=== PATIENT | female | born 1950 | race African-American/Black ===

== ENCOUNTER 2017-06-29 19:23 | Emergency (ER) | payer BC ==
[2017-06-29 19:30] VITALS: BP 137/85; PULSE 80; TEMP 97.7; BMI 25.8
--- NOTE | 2017-06-29 20:20 | PDOC ---
History of Present Illness - General History Source: Patient Exam Limitations: No Limitations - History of Present Illness Initial Comments: 06/29/17 21:44 The patient is a 66 year old female with no significant past medical history who presents to the ED complaining of right shoulder pain that began last night. Patient states she was lifting weights in an exercise class when her pain began. She completed the class. Today she noted a prominence of her right shoulder with significant pain. She also reports associated limited ROM in her right shoulder. No numbness or tingling. No clicking, locking, or catching. <Tiffanie Grissom - Last Filed: 06/29/17 21:44> <Brandee Rodriguez - Last Filed: 06/30/17 05:48> - General Chief Complaint: Injury Stated Complaint: RT SHOULDER PAIN Past History <Tiffanie Grissom - Last Filed: 06/29/17 21:44> - Past Medical History Other medical history: DENIES - Suicide/Smoking/Psychosocial Hx Smoking History: Never smoked <Brandee Rodriguez - Last Filed: 06/30/17 05:48> - Past Medical History Allergies/Adverse Reactions: Allergies Allergy/AdvReac Type Severity Reaction Status Date / Time No Known Allergies Allergy Unverified 06/29/17 19:27 Home Medications: Ambulatory Orders NK [No Known Home Medication] 06/29/17 Review of Systems - Review of Systems Able to Perform ROS?: Yes Comments:: 06/29/17 21:46 GENERAL/CONSTITUTIONAL: No fever or chills. No weakness. HEAD, EYES, EARS, NOSE AND THROAT: No change in vision. No ear pain or discharge. No sore throat. CARDIOVASCULAR: No chest pain or shortness of breath. RESPIRATORY: No cough, wheezing, or hemoptysis. GASTROINTESTINAL: No nausea, vomiting, diarrhea or constipation. GENITOURINARY: No dysuria, frequency, or change in urination. MUSCULOSKELETAL: +R shoulder pain. No other joint or muscle swelling or pain. No neck or back pain. SKIN: No rash NEUROLOGIC: No headache, vertigo, loss of consciousness, or change in strength/ sensation. ENDOCRINE: No increased thirst. No abnormal weight change. HEMATOLOGIC/LYMPHATIC: No anemia, easy bleeding, or history of blood clots. ALLERGIC/IMMUNOLOGIC: No hives or skin allergy. <Tiffanie Grissom - Last Filed: 06/29/17 21:44> *Physical Exam - Vital Signs Last Vital Signs Temp Pulse Resp BP Pulse Ox 97.7 F 80 18 137/85 100 06/29/17 19:28 06/29/17 19:28 06/29/17 19:28 06/29/17 19:28 06/29/17 19:28 - Physical Exam Comments: 06/29/17 21:46 GENERAL: Awake, alert, and fully oriented, in no acute distress HEAD: No signs of trauma EYES: PERRLA, EOMI, sclera anicteric, conjunctiva clear NECK: Normal ROM, supple, no lymphadenopathy, JVD, or masses EXTREMITIES: RUE: +Prominence at the lateral clavicle. Able to cross shoulder with full ROM. No tenderness to palpation. All other extremities: Normal range of motion, no edema. No clubbing or cyanosis. No cords, erythema, or tenderness NEUROLOGICAL: Cranial nerves II through XII grossly intact. Normal speech, normal gait SKIN: Warm, Dry, normal turgor, no rashes or lesions noted. <Tiffanie Grissom - Last Filed: 06/29/17 21:44> - Vital Signs Last Vital Signs Temp Pulse Resp BP Pulse Ox 97.7 F 80 18 137/85 100 06/29/17 19:28 06/29/17 19:28 06/29/17 19:28 06/29/17 19:28 06/29/17 19:28 <Brandee Rodriguez - Last Filed: 06/30/17 05:48> ED Treatment Course - Medications Given in the ED: ED Medications Discontinued Medications Generic Name Dose Route Start Last Admin Trade Name Freq PRN Reason Stop Dose Admin Ibuprofen 800 mg 06/29/17 21:09 06/29/17 21:22 Motrin - PO 06/29/17 21:10 800 mg ONCE ONE Administration <Tiffanie Grissom - Last Filed: 06/29/17 21:44> Medical Decision Making - Medical Decision Making 06/30/17 05:46 Pt has a prominent right lateral aspect of her clavicle. Likely minor AC joint subluxation. Pt has been involved in intense workouts, in particular a long aerobics class involving weights and her upper extremities. Pt has musculoskeletal sprain and strain. She will be teated with NSAIDs and muscle relaxants and referred back to her PMD for followup as needed. I suggested rest of the right shoulder. No upper body weight exercises until her condition has improved. <Brandee Rodriguez - Last Filed: 06/30/17 05:48> *DC/Admit/Observation/Transfer - Attestations Scribe Attestion: 06/29/17 21:48 Documentation prepared by Tiffanie Grissom, acting as medical office secretary for Brandee Rodriguez MD. <Tiffanie Grissom - Last Filed: 06/29/17 21:44> - Discharge Dispostion Admit: No <Brandee Rodriguez - Last Filed: 06/30/17 05:48> Diagnosis at time of Disposition: Acromioclavicular (joint) (ligament) sprain - Discharge Dispostion Disposition: HOME Condition at time of disposition: Stable - Patient Instructions Printed Discharge Instructions: Shoulder Sprain, AC Joint Separation - Post Discharge Activity Forms/Work/School Notes: Back to Work
[2017-06-29] MEDS ORDERED: IBUPROFEN 400 MG TABLET (FP) PO ONE ×2 (21:09→21:22)
== END 2017-06-29 21:49 | disposition home or self-care (01) ==
LOC: FER 19:23
DX: S43.51XA Sprain of right acromioclavicular joint, initial encounter (principal); X58.XXXA Exposure to other specified factors, initial encounter; Y93.89 Activity, other specified; Y92.9 Unspecified place or not applicable
CPT/HCPCS: 73030-TC-RT; 99281-25

== ENCOUNTER 2019-07-14 19:42 | Emergency (ER) | payer BC ==
--- NOTE | 2019-07-14 19:44 | PDOC ---
History of Present Illness - General Chief Complaint: Pain, Acute Stated Complaint: LEFT FLANK PAIN History Source: Patient - History of Present Illness Initial Comments: 07/15/19 06:56 l flank pain Timing/Duration: reports: intermittent Quality: reports: moderate Abdominal Pain Onset Location: reports: flank Pain Radiation: reports: no radiation Activities at Onset: reports: exertion Aggravating Factors: improves with: Movement Alleviating Factors: improves with: Rest Past History - Past Medical History Allergies/Adverse Reactions: Allergies Allergy/AdvReac Type Severity Reaction Status Date / Time No Known Allergies Allergy Verified 07/14/19 19:43 Home Medications: Ambulatory Orders Ibuprofen [Motrin -] 400 mg PO QID PRN #12 tablet 07/14/19 Other medical history: denies - Psycho Social/Smoking Cessation Hx Smoking History: Never smoked Review of Systems - Review of Systems All Other Systems: Reviewed and Negative *Physical Exam - Physical Exam General Appearance: Yes: Nourished, Appropriately Dressed HEENT: negative: Scleral Icterus (R), Scleral Icterus (L) Neck: negative: Tender midline Respiratory/Chest: positive: Lungs Clear Cardiovascular: positive: Regular Rhythm Gastrointestinal/Abdominal: negative: Tender, Distended Lymphatic: negative: Adenopathy Musculoskeletal: positive: Normal Inspection, Other (+ paraspinal muscular tenderness on L). negative: Decreased Range of Motion Extremity: positive: Normal Capillary Refill Integumentary: positive: Normal Color Medical Decision Making - Medical Decision Making 07/15/19 06:57 msk pain nsaids Ua reviewed Discharge - Discharge Information Problems reviewed: Yes Clinical Impression/Diagnosis: Muscle injury Condition: Stable Disposition: HOME - Additional Discharge Information Prescriptions: Ibuprofen [Motrin -] 400 mg PO QID PRN #12 tablet PRN Reason: Pain - Follow up/Referral - Patient Discharge Instructions Patient Printed Discharge Instructions: Muscle Strain - Post Discharge Activity
[2019-07-14 19:48] VITALS: BP 150/88; PULSE 78; TEMP 97.6; BMI 25.5
[2019-07-14] MEDS ORDERED: IBUPROFEN 400 MG TABLET (FP) PO ONE ×2 (20:52→20:53)
== END 2019-07-14 20:55 | disposition home or self-care (01) ==
LOC: FER 19:42
DX: M79.10 Myalgia, unspecified site (principal)
CPT/HCPCS: 81003; 99281-25

== ENCOUNTER 2019-07-31 17:53 | Emergency (ER) | payer BC ==
--- NOTE | 2019-07-31 18:17 | PDOC ---
History of Present Illness - General Chief Complaint: Pain Stated Complaint: FLANK PAIN & REFLUX Time Seen by Provider: 07/31/19 17:57 History Source: Patient Exam Limitations: No Limitations - History of Present Illness Initial Comments: 07/31/19 18:14 HPI 68-year-old female with no significant medical or surgical history presenting with left lower quadrant pain intermittently x1 month. Denies any exacerbating or alleviating factors. Left lower quadrant abdominal pain described as achy, intermittent, can occur at random times of the day. She also endorses occasional symptoms of "reflux" from her abdomen into her chest, took Milk of Magnesia and oral antacids last night with some relief. Patient was seen approximately 2 weeks ago here in the emergency department for similar symptoms though at that time more severe clinical symptoms, work-up was unremarkable, no imaging was performed at that time, she was instructed to take NSAID with minimal relief thus far. at that time told she was likely having musculoskeletal strain. Denies fever, chills, chest pain, SOB, palpitation, dizziness, weakness, N, V, D , bladder and bowel problems, focal weakness/paresthesias, leg swelling/pain, rash. No sick contacts or travel. No new changes in medications. No suspicious food intake Allergies: None Past Medical History/PSH: as above Social history: Lives with family. No tobacco, ETOH or drug use. Meds: as documented in EMR PMD: [facility] Review of systems Constitutional: no fevers or chills. No weakness HEENT: no headache or dizziness. No congestion. No visual/hearing disturbances. CVS: no cp or syncope. no heartburn Resp: no sob. No cough. Gastrointestinal: +abdominal pain, +reflux, +nausea, No vomiting, diarrhea. no constipation. Genitourinary: no urinary sx, hematuria. No urgency or frequency. No vaginal discharge or vaginal bleeding MUSCULOSKELETAL: No joint pain and swelling. No neck or back pain. SKIN: no redness or skin changes, no discharge, no rash. No wounds. Hematologic: no easy bruising/bleeding. NEUROLOGIC: No headache, dizziness, LOC or altered mental status. No weakness, numbness or tingling. Psych: no anxiety or depression Allergic/Immunologic: no allergies All other systems reviewed and negative, or as documented in HPI. Physical exam General: Well appearing, awake and alert, NAD. HEENT: NCAT, PERRL, EOMI, clear conjunctiva, anicteric, moist mucus membranes, clear oropharynx, no oral lesions.. Neck: neck supple, FROM Resp: CTAB, normal and even respirations, no respiratory distress CVS: RRR, no murmurs, 2+ peripheral pulses throughout, no peripheral edema Abdomen: soft, nondistended, left lower quadrant tenderness to palpation no rebound or guarding. No CVA tenderness Back: nontender, normal inspection and ROM MSK: no edema, OAKES x4, ROM intact. No clubbing or cyanosis. normal bulk and tone. Extremities: no calf tenderness Neuro: alert, oriented appropriately; no focal neurologic deficits Psych: Calm and cooperative Skin: warm and well perfused, cap refill <2 sec, normal color, no rash or skin discoloration. 07/31/19 18:46 07/31/19 18:50 Past History - Past Medical History Allergies/Adverse Reactions: Allergies Allergy/AdvReac Type Severity Reaction Status Date / Time No Known Allergies Allergy Verified 07/31/19 17:57 Home Medications: Ambulatory Orders Magnesium Hydrox 2400MG/30Ml [Milk of Magnesia -] 30 ml PO ONCE 07/31/19 COPD: No - Psycho Social/Smoking Cessation Hx Smoking History: Never smoked Have you smoked in the past 12 months: No Hx Alcohol Use: No Drug/Substance Use Hx: No ED Treatment Course - LABORATORY CBC & Chemistry Diagram: 07/31/19 18:53 07/31/19 18:53 Medical Decision Making - Medical Decision Making 07/31/19 18:47 Vital Signs Temp Pulse Resp BP Pulse Ox 97.6 F 66 19 137/76 99 07/31/19 17:56 07/31/19 17:56 07/31/19 17:56 07/31/19 17:56 07/31/19 17:56 DDx abdominal pain: Renal colic, biliary colic, metabolic/electrolyte derangements. GERD, PUD, esophageal spasm, pancreatitis, hepatitis, constipation , colitis, gastroenteritis, cholecystitis, UTI, pyelonephritis, ileus, SBO, medication side effect, hernia, appendicitis, diverticulitis, mesenteric ischemia. msk strain, mesenteric adenitis, psoas abscess. abdominal mass. Patient has had intermittent symptoms of left lower quadrant abdominal pain x1 month. Declines any analgesia at this time, current pain is rated at 6/10. Unlikely pelvic pathology or ovarian cyst/torsion as there is no lower pelvic symptoms. Symptoms are most isolated in the abdominal region, no obstructive findings. No evidence of peritonitis. No systemic findings, otherwise well- appearing. Will give IV fluids, Maalox and Pepcid and reassess. We will also obtain CT abdomen pelvis to evaluate for diverticular disease versus diverticulitis versus intra-abdominal inflammation/infection as etiology of her symptoms given this is her second visit and symptoms are unremitting. vs mass s/o overnight attg Dr Carcamo pending imaging and ultimate dispo Discharge - Discharge Information Problems reviewed: Yes Clinical Impression/Diagnosis: Abdominal pain, left lower quadrant Condition: Good Disposition: HOME - Follow up/Referral Referrals: Carlos Garay [Primary Care Provider] - - Patient Discharge Instructions Additional Instructions: Your work-up was negative for any acute processes that could be causing her symptoms. It is important that you follow-up with your primary care doctor early next week if you still have any complaints or symptoms Return to the emergency department immediately with ANY new, persistent or worsening symptoms. Continue any medications as previously prescribed by your physician. You should follow up with your primary doctor as soon as possible regarding today's emergency department visit. . Please make sure your doctor reviews the results of your emergency evaluation. Thank you for coming to the Emergency Department today for your care. It was a pleasure to see you today. Please note that your evaluation is INCOMPLETE until you follow-up with your doctor. - Post Discharge Activity
[2019-07-31 18:22] VITALS: BP 137/76; PULSE 66; TEMP 97.6; BMI 25.5
[2019-07-31] MEDS ORDERED: MAG HYDROX/AL HYDROX/SIMETH 30 ML UNIT-DOSE CUP PO ONE (18:25)
[2019-07-31] MEDS ORDERED: FAMOTIDINE 20 MG/50 ML IVPB 20 MG/50 ML MG IVPB ONE ×2 (18:25→19:01)
[2019-07-31] MEDS ORDERED: SODIUM CHLORIDE 1,000 ML IV STA (18:25)
[2019-07-31] MEDS ORDERED: MAG HYDROX/AL HYDROX/SIMETH 30 ML UNIT-DOSE CUP ONE (19:01)
[2019-07-31 19:08] LABS: BASO % 0.7 % (0-2.0); HEMOGLOBIN 12.7 GM/dl (10.7-15.3); LYMPH % 38.7 % (8-40); MCH 31.1 pg (25.7-33.7); MCHC 32.6 g/dl (32.0-36.0); MEAN CELL VOLUME 95.5 fl (80-96); MEAN PLT VOLUME 7.9 fl (7.5-11.1); MONO % 10.6 % (3.8-10.2); PLATELET COUNT 219 K/MM3 (134-434); RBC 4.09 M/mm3 (3.60-5.2); RDW 13.2 % (11.6-15.6); WHITE BLOOD COUNT 4.7 K/mm3 (4.0-10.8)
[2019-07-31 20:21] LABS: ALBUMIN 3.7 g/dl (3.4-5.0); BILIRUBIN,TOTAL 0.4 mg/dl (0.2-1); CALCIUM 9.3 mg/dl (8.5-10); CREATININE 0.6 mg/dl (0.55-1.3); POTASSIUM 4.9 mmol/L (3.5-5.1); TOT PROT 6.8 g/dl (6.4-8.2)
[2019-07-31 21:01] LABS: EPITHELIAL CELLS FEW /hpf
--- NOTE | 2019-07-31 22:14 | PDOC ---
*Physical Exam - Vital Signs Last Vital Signs Temp Pulse Resp BP Pulse Ox 97.6 F 66 19 137/76 99 07/31/19 17:56 07/31/19 17:56 07/31/19 17:56 07/31/19 17:56 07/31/19 17:56 ED Treatment Course - LABORATORY CBC & Chemistry Diagram: 07/31/19 18:53 07/31/19 18:53 - ADDITIONAL ORDERS Additional order review: Laboratory Results 07/31/19 07/31/19 07/31/19 19:35 18:53 18:12 Sodium 140 Potassium 4.9 Chloride 104 Carbon Dioxide 28 Anion Gap 8 BUN 14.0 Creatinine 0.6 Est GFR (CKD-EPI)AfAm 107.79 Est GFR (CKD-EPI)NonAf 93.00 Random Glucose 77 Calcium 9.3 Total Bilirubin 0.4 AST 20 ALT 18 Alkaline Phosphatase 46 Total Protein 6.8 Albumin 3.7 Lipase 66 L Urine Color Yellow Urine Appearance Clear Urine pH 7.5 Urine Protein Negative Urine Glucose (UA) Negative Urine Ketones Negative Urine Blood Negative Urine Nitrite Negative Urine Bilirubin Negative Urine Urobilinogen 0.2 Ur Leukocyte Esterase Trace H Urine RBC 0-2 Urine WBC 2-5 Ur Transition Epith Cell Few Urine Bacteria Moderate 07/31/19 18:53 RBC 4.09 MCV 95.5 MCHC 32.6 RDW 13.2 MPV 7.9 Neutrophils % 48.0 Lymphocytes % 38.7 Monocytes % 10.6 H Eosinophils % 2.0 Basophils % 0.7 - Medications Given in the ED: ED Medications Discontinued Medications Generic Name Dose Route Start Last Admin Trade Name Freq PRN Reason Stop Dose Admin Al Hydroxide/Mg Hydroxide 30 ml 07/31/19 18:25 07/31/19 19:06 Mylanta Oral Suspension - PO 07/31/19 18:26 30 ml ONCE ONE Administration Famotidine/Sodium Chloride 20 mg in 50 mls @ 100 mls/hr 07/31/19 18:25 19:06 Pepcid 20 Mg Premixed Ivpb - IVPB 07/31/19 18:54 100 mls/hr ONCE ONE Administration Sodium Chloride 1,000 mls @ 1,000 mls/hr 07/31/19 18:25 07/31/19 19:06 Normal Saline - IV 07/31/19 19:24 1,000 mls/hr ASDIR STA Administration ED Progress Note - Progress Note Progress Note: 07/31/19 22:13 Care of this patient was transferred to me from Dr. Hernandez at 1900 hrs. Patient is a 68-year-old female who comes in complaining of left-sided abdominal pain. Patient has a work-up in progress including a CAT scan of her abdomen. Patient' s blood work is normal however CAT scan is still pending. Patient's CAT scan was negative for any acute pathology specifically no diverticulitis Patient has been sleeping comfortably Patient discharged we will follow-up with her primary care doctor Discharge - Discharge Information Problems reviewed: Yes Clinical Impression/Diagnosis: Abdominal pain, left lower quadrant Condition: Good - Follow up/Referral Referrals: Carlos Garay [Primary Care Provider] - - Patient Discharge Instructions Additional Instructions: Your work-up was negative for any acute processes that could be causing her symptoms. It is important that you follow-up with your primary care doctor early next week if you still have any complaints or symptoms Return to the emergency department immediately with ANY new, persistent or worsening symptoms. Continue any medications as previously prescribed by your physician. You should follow up with your primary doctor as soon as possible regarding today's emergency department visit. . Please make sure your doctor reviews the results of your emergency evaluation. Thank you for coming to the Emergency Department today for your care. It was a pleasure to see you today. Please note that your evaluation is INCOMPLETE until you follow-up with your doctor. - Post Discharge Activity
[2019-07-31] MEDS ORDERED: KETOROLAC TROMETHAMINE 30 MG/1 ML VIAL ONE (22:18)
[2019-07-31] MEDS ORDERED: KETOROLAC TROMETHAMINE 30 MG/1 ML VIAL IVPUSH ONE (22:18)
--- NOTE | 2019-08-01 14:12 | EKG ---
Test Reason : Blood Pressure : / mmHG Vent. Rate : 061 BPM Atrial Rate : 061 BPM P-R Int : 206 ms QRS Dur : 090 ms QT Int : 424 ms P-R-T Axes : 070 041 045 degrees QTc Int : 426 ms NORMAL SINUS RHYTHM POSSIBLE LEFT ATRIAL ENLARGEMENT NO PREVIOUS ECGS AVAILABLE Confirmed by GWEN CARROLL MD ([id number]) on 08/01/2019 2:12:21 PM Referred By: DR CASANOVA Confirmed By:GWEN CARROLL MD
== END 2019-07-31 22:23 | disposition home or self-care (01) ==
LOC: FER 17:53
PROC: 3E033GC Introduction of Other Therapeutic Substance into Peripheral Vein, Percutaneous Approach (ICD-10-PCS; principal; 2019-07-31)
PROC: 3E0333Z Introduction of Anti-inflammatory into Peripheral Vein, Percutaneous Approach (ICD-10-PCS; 2019-07-31)
DX: R10.32 Left lower quadrant pain (principal)
CPT/HCPCS: 36415; 74177-TC; 80053; 81003; 81015; 83690; 85025; 87086; 87186; 93005; 99283-25; J7030

== ENCOUNTER 2023-08-24 00:03 | Emergency (ER) | payer OTHER, BC ==
[2023-08-24 00:31] VITALS: BP 130/80; PULSE 88; RESP 16; TEMP 97.6; BMI 25.5
== END 2023-08-24 01:42 | disposition home or self-care (01) ==
LOC: FER 00:03
PROC: 0HQFXZZ Repair Right Hand Skin, External Approach (ICD-10-PCS; principal; 2023-08-24)
DX: S61.312A Laceration without foreign body of right middle finger with damage to nail, initial encounter (principal); W26.0XXA Contact with knife, initial encounter
CPT/HCPCS: 99282-25

== ENCOUNTER 2023-08-31 20:23 | Emergency (ER) | payer OTHER, BC ==
[2023-08-31 20:40] VITALS: BP 151/84; PULSE 87; RESP 16; TEMP 97.6; BMI 25.5
== END 2023-08-31 21:16 | disposition home or self-care (01) ==
LOC: FER 20:23
DX: Z48.02 Encounter for removal of sutures (principal)
CPT/HCPCS: 99281-25

== ENCOUNTER 2024-06-11 21:21 | Emergency (ER) | payer OTHER, BC ==
[2024-06-11 21:45] VITALS: BP 120/100; PULSE 78; RESP 16; TEMP 97.3; BMI 25.5
[2024-06-11] MEDS: ACETAMINOPHEN 500 MG TABLET (FP) PO ONE (22:21)
[2024-06-11] MEDS ORDERED: ACETAMINOPHEN 500 MG TABLET (FP) ONE (22:22)
== END 2024-06-11 22:26 | disposition home or self-care (01) ==
LOC: FER 21:21
DX: S90.121A Contusion of right lesser toe(s) without damage to nail, initial encounter (principal); W20.8XXA Other cause of strike by thrown, projected or falling object, initial encounter
CPT/HCPCS: 73660-TC-FY; 99283-25